=== PATIENT | female | born 1975 | race Caucasian/White ===

== ENCOUNTER 2018-01-23 14:19 | Emergency (ER) | payer OTHER ==
--- NOTE | 2018-01-23 14:22 | PDOC ---
History of Present Illness <Asher Andrade - Last Filed: 01/23/18 19:01> - General History Source: Patient Exam Limitations: No Limitations - History of Present Illness Initial Comments: 01/23/18 14:38 The patient is a 42 year old female with a significant PMH of asthma and depression who presents to the emergency department with a three day history of constipation and abdominal pain with multiple episodes of vomit since this morning. The patient states she has been constipated for the past three days and used a fleet enema yesterday but has still not had a bowel movement. The patient describes the abdominal pain as sharp, intermittent, and localized in the right lower quadrant with radiation to the lower back. The patient also endorses multiple episodes of nonbloody, nonbilious vomit since this morning. The patient denies any alleviating or exacerbating factors for her symptoms. The patient denies taking any medications for her symptoms. The patient denies chest pain, shortness of breath, headache and dizziness. Denies fever, chills, and diarrhea. Denies dysuria, frequency, urgency and hematuria. Allergies: lamotrigine. Past surgical history: Gastric sleeve two years ago and tubal ligation. Social history: No reported alcohol,drug, or cigarette use. <Monica Acosta - Last Filed: 01/23/18 19:05> - General Chief Complaint: Pain Stated Complaint: ABD PAIN Time Seen by Provider: 01/23/18 14:22 Past History - Past Medical History Asthma: Yes Psychiatric Problems: Yes (DEPRESSION) - Surgical History GI Surgery: Yes (SLEEVE) - Suicide/Smoking/Psychosocial Hx Smoking Status: No Smoking History: Never smoked Number of Cigarettes Smoked Daily: 0 <Asher Andrade - Last Filed: 01/23/18 19:01> <Monica Acosta - Last Filed: 01/23/18 19:05> - Past Medical History Allergies/Adverse Reactions: Allergies Allergy/AdvReac Type Severity Reaction Status Date / Time lamotrigine [From Lamictal] Allergy Unknown Verified 01/23/18 14:22 Home Medications: Ambulatory Orders Quetiapine Fumarate [Seroquel] 400 mg PO HS 08/29/15 Review of Systems - Review of Systems Able to Perform ROS?: Yes Comments:: 01/23/18 14:29 CONSTITUTIONAL: Absent: fever, no chills, no fatigue EYES: Absent: visual changes ENT: Absent: ear pain, no sore throat CARDIOVASCULAR: Absent: chest pain, no palpitations RESPIRATORY: Absent: cough, no SOB GI: Absent: No diarrhea. Present: Abdominal pain. Vomiting. Constipation. GENITOURINARY: Absent: dysuria, no frequency, no hematuria MUSKULOSKELETAL: Absent: back pain, no arthralgia, no myalgia SKIN: Absent: rash NEURO: Absent: headache <Monica Acosta - Last Filed: 01/23/18 19:05> *Physical Exam - Physical Exam Comments: 01/23/18 14:28 GENERAL: (+) Appears uncomfortable. Well-nourished. HEENT: Normocephalic, atraumatic. PERRL, EOM intact. CARDIOVASCULAR: Normal S1, S2. Regular rate and rhythm. PULMONARY: Clear to auscultation bilaterally. ABDOMEN: (+) Right lower quadrant tenderness. Soft, non-distended. Normoactive bowel sounds. No organomegaly. No masses. No guarding or rebound. EXTREMITIES: Normal ROM in all four extremities. No gross deformities. SKIN: Warm, dry. No rash NEUROLOGICAL: No focal neurological deficits. <Monica Acosta - Last Filed: 01/23/18 19:05> ED Treatment Course - LABORATORY CBC & Chemistry Diagram: 01/23/18 14:58 01/23/18 14:58 <Asher Andrade - Last Filed: 01/23/18 19:01> - LABORATORY CBC & Chemistry Diagram: 01/23/18 14:58 01/23/18 14:58 <Monica Acosta - Last Filed: 01/23/18 19:05> Progress Note - Progress Note Progress Note: Pt is feeling better after IVF and pain medications. Labs show H/H to be low which is unchanged from 05/18. No bleeding, MCV low, most likely chronic anemia from iron deficiency CT abdomen/pelvis: ruptured hemorrhagic right ovarian cyst, no appendicitis WBC normal, no fever. WIll discharge home with follow up with marketing strategist Pt refuses marketing strategist exam at this time, risks and benefits discussed with pt Pt is in agreement with plan. <Asher Andrade - Last Filed: 01/23/18 19:01> Medical Decision Making - Medical Decision Making 01/23/18 19:05 IMAGING: Abdomen and pelvis CT FINDINGS: 1.There is a small amount of free fluid in the right adnexa and cul- de0sac. The Hounsfield units are suggestive of blood products. This may represent sequela of a ruptured right ovarian hemorrhagic cyst. In the proper clinical setting a tubo-ovarian infectious process would need to be considered. There is an approximately 2.2 cm area of low attenuation in the right ovary with marginal enhancement. Possible corpus with cyst. There is evidence of previous bilateral tubal ligation with retained hardware. 2. Splenomegaly 3. No other evidence of an acute intra-abdominal process. The appendix is normal in appearance. There is no evidence of pneumoperitoneum 4. There is mild to moderate amount of stool throughout the colon. 5. Previous gastric surgery <Monica Acosta - Last Filed: 01/23/18 19:05> *DC/Admit/Observation/Transfer - Discharge Dispostion Decision to Admit order: No <Asher Andrade - Last Filed: 01/23/18 19:01> <Monica Acosta - Last Filed: 01/23/18 19:05> Diagnosis at time of Disposition: Ruptured ovarian cyst Abdominal pain Qualifiers: Abdominal location: right lower quadrant Qualified Code(s): R10.31 - Right lower quadrant pain Constipation Qualifiers: Constipation type: unspecified constipation type Qualified Code(s): K59.00 - Constipation, unspecified - Discharge Dispostion Disposition: HOME - Patient Instructions Printed Discharge Instructions: DI for Ovarian Cyst, DI for Abdominal Pain- Adult, DI for Constipation Additional Instructions: Fluids, rest, Motrin Stool softeners Follow up with your lpn private duty If worsen return to ER
[2018-01-23] MEDS ORDERED: morphine CARPU-JECT 4 MG/1 ML DISP.SYRIN IVPUSH ONE (14:27)
[2018-01-23] MEDS ORDERED: SODIUM CHLORIDE 1,000 ML IV STA (14:27)
[2018-01-23] MEDS ORDERED: ONDANSETRON 4 MG/2 ML VIAL IVPUSH ONE (14:27)
[2018-01-23 14:29] VITALS: BP 129/84; PULSE 86; TEMP 98; BMI 38.7
[2018-01-23] MEDS ORDERED: ONDANSETRON 4 MG/2 ML VIAL ONE (14:37)
[2018-01-23] MEDS ORDERED: morphine SULFATE 4 MG/ML VIAL ONE (14:37)
[2018-01-23 15:11] LABS: URINE APPEARANCE Clear; URINE BILIRUBIN Negative (NEGATIVE); URINE GLUCOSE (UA) Negative (NEGATIVE); URINE KETONE Negative (NEGATIVE); URINE LEUK ESTERASE Negative (NEGATIVE); URINE NITRITE Negative (NEGATIVE); URINE PROTEIN Negative (NEGATIVE); URINE UROBILINOGEN 0.2 (0.2-1.0)
[2018-01-23 15:12] LABS: URINE COLOR YELLOW
[2018-01-23 15:20] LABS: HCG,QUALITATIVE URINE Negative
[2018-01-23 15:28] LABS: HEMOGLOBIN 8.3 GM/dl (10.7-15.3); MEAN PLT VOLUME 7.9 fl (7.5-11.1)
[2018-01-23 15:30] LABS: ALBUMIN 3.7 g/dl (3.5-5.0); ALK PHOS 53 U/L (32-92); ANION GAP 6 (8-16); BILIRUBIN,TOTAL 0.5 mg/dl (0.2-1.0); BLOOD UREA NITROGEN 11 mg/dl (7-18); CALCIUM 8.8 mg/dl (8.4-10.2); CHLORIDE 105 mmol/L (98-107); CO2 26 mmol/L (22-28); CREATININE 0.5 mg/dl (0.6-1.3); GLUCOSE,RANDOM 104 mg/dl (74-106); POTASSIUM 3.8 mmol/L (3.5-5.1); SGOT/AST 19 U/L (10-42); SGPT/ALT 17 U/L (10-40); SODIUM 137 mmol/L (136-145); TOT PROT 6.6 g/dl (6.4-8.3)
[2018-01-23 15:31] LABS: EOS % 4.4 % (0-4.5); LYMPH % 17.2 % (8-40); MCHC 30.6 g/dl (32.0-36.0); MEAN CELL VOLUME 63.8 fl (80-96); MONO % 9.4 % (3.8-10.2); PLATELET COUNT 236 K/MM3 (134-434); RBC 4.23 M/mm3 (3.60-5.2); RDW 17.2 % (11.6-15.6); WHITE BLOOD COUNT 5.4 K/mm3 (4.0-10.8)
[2018-01-23 15:34] LABS: MCH 19.5 pg (25.7-33.7)
[2018-01-23 16:37] LABS: LIPASE 122 U/L (73-393)
== END 2018-01-23 19:13 | disposition home or self-care (01) ==
LOC: FER 14:19
PROC: 3E033NZ Introduction of Analgesics, Hypnotics, Sedatives into Peripheral Vein, Percutaneous Approach (ICD-10-PCS; principal; 2018-01-23)
PROC: 3E033GC Introduction of Other Therapeutic Substance into Peripheral Vein, Percutaneous Approach (ICD-10-PCS; 2018-01-23)
PROC: 3E0337Z Introduction of Electrolytic and Water Balance Substance into Peripheral Vein, Percutaneous Approach (ICD-10-PCS; 2018-01-23)
DX: R10.31 Right lower quadrant pain (principal); K59.00 Constipation, unspecified
CPT/HCPCS: 36415; 74177-TC; 80053; 81003; 83690; 84703; 85025; 99282-25; J7030

== ENCOUNTER 2018-10-24 14:18 | Day surgery (SDC) | payer OTHER ==
[2018-10-24] MEDS ORDERED: FERRIC CARBOXYMALTOSE 750 MG in SODIUM CHLORIDE 250 ML IVPB ONE (15:30)
[2018-10-24 16:36] VITALS: TEMP 97.5
[2018-10-24 17:02] VITALS: BP 134/79; PULSE 76
== END 2018-10-24 17:03 | disposition home or self-care (01) ==
LOC: JONCNONCHE 14:18
PROVIDERS: ATTEND Internal Medicine Hematology & Oncology
PROC: 3E033GC Introduction of Other Therapeutic Substance into Peripheral Vein, Percutaneous Approach (ICD-10-PCS; principal; 2018-10-24)
DX: D50.9 Iron deficiency anemia, unspecified (principal)
CPT/HCPCS: 96365; J1439

== ENCOUNTER 2018-10-31 07:07 | Day surgery (SDC) | payer OTHER ==
[2018-10-31] MEDS ORDERED: FERRIC CARBOXYMALTOSE 750 MG in SODIUM CHLORIDE 250 ML IVPB ONE (10:00)
[2018-10-31 17:11] VITALS: TEMP 98.1
[2018-10-31 17:56] VITALS: BP 113/57; PULSE 73
== END 2018-10-31 17:45 | disposition home or self-care (01) ==
LOC: JONCNONCHE 07:07 → J7W 16:28 → JONCNONCHE 17:45
PROVIDERS: ATTEND Internal Medicine Hematology & Oncology
PROC: 3E033GC Introduction of Other Therapeutic Substance into Peripheral Vein, Percutaneous Approach (ICD-10-PCS; principal; 2018-10-31)
DX: D50.9 Iron deficiency anemia, unspecified (principal)
CPT/HCPCS: 96365; J1439

== ENCOUNTER 2020-02-16 07:42 | Day surgery (SDC) | payer OTHER ==
[2020-02-15 10:08] VITALS: BMI 39.3
--- NOTE | 2020-02-16 09:17 | HP ---
Admitting History and Physical - Admission Chief Complaint: symptomatic cholelithiasis History of Present Illness: 44 y.o. female with chronic RUQ pain. US showed cholelithiasis with normal CBD History Source: Patient Limitations to Obtaining History: No Limitations - Past Medical History ...LMP: 02/12/20 - Smoking History Smoking history: Never smoked Have you smoked in the past 12 months: No Aproximately how many cigarettes per day: 0 - Alcohol/Substance Use Hx Alcohol Use: No Home Medications - Allergies Allergies/Adverse Reactions: Allergies Allergy/AdvReac Type Severity Reaction Status Date / Time lamotrigine [From Lamictal] Allergy Unknown Verified 02/15/20 09:59 - Home Medications Home Medications: Ambulatory Orders Quetiapine Fumarate [Seroquel] 400 mg PO HS 08/29/15 Review of Systems - Review of Systems Constitutional: reports: No Symptoms Eyes: reports: No Symptoms HENT: reports: No Symptoms Neck: reports: No Symptoms Cardiovascular: reports: No Symptoms Respiratory: reports: No Symptoms Gastrointestinal: reports: Abdominal Pain (intermittent at RUQ) Genitourinary: reports: No Symptoms Physical Examination Vital Signs: Vital Signs Temperature 98.0 F 02/16/20 08:31 Pulse Rate 79 02/16/20 08:31 Respiratory Rate 20 02/16/20 08:31 Blood Pressure 116/69 02/16/20 08:31 O2 Sat by Pulse Oximetry (%) 96 02/16/20 08:31 Constitutional: Yes: Well Nourished Eyes: Yes: WNL HENT: Yes: Normocephalic Neck: Yes: Supple Cardiovascular: Yes: Regular Rate and Rhythm Respiratory: Yes: CTA Bilaterally Gastrointestinal: Yes: Normal Bowel Sounds, Soft, Abdomen, Obese Imaging - Results Ultrasound: Report Reviewed, Image Reviewed Problem List - Problems (1) Chronic cholecystitis with calculus Assessment/Plan: laparoscopic cholecystectomy Code(s): K80.10 - CALCULUS OF GALLBLADDER W CHRONIC CHOLECYST W/O OBSTRUCTION
[2020-02-16] MEDS ORDERED: PROPOFOL 20 ML ONE (09:23)
[2020-02-16] MEDS ORDERED: MIDAZOLAM HCL 2 MG/2 ML SINGLE DOSE VIAL ONE (09:23)
[2020-02-16] MEDS ORDERED: LIDOCAINE HCL/PF 2% SDV 5ML VIAL ONE (09:25)
[2020-02-16] MEDS ORDERED: ceFAZolin SODIUM 1 GM VIAL ONE (09:25)
[2020-02-16] MEDS ORDERED: SODIUM CHLORIDE 0.9% P/F 10 ML VIAL IJ ONE (09:25)
[2020-02-16] MEDS ORDERED: DEXAMETHASONE SOD PHOSPHATE 4 MG/1 ML VIAL ONE (09:25)
[2020-02-16] MEDS ORDERED: ceFAZolin 2 GRAM PREMIX BAG IVPB ONE (10:03)
[2020-02-16] MEDS ORDERED: BUPIVACAINE HCL/PF 0.5% (5 MG/ML) 30 ML VIAL IJ ONE ×2 (10:20)
[2020-02-16] MEDS ORDERED: NEOSTIGMINE METHYLSULFATE 0.5 MG/ML - 10 ML MDV ONE (11:19)
[2020-02-16] MEDS ORDERED: GLYCOPYRROLATE 0.2 MG/1 ML VIAL ONE (11:19)
--- NOTE | 2020-02-16 11:48 | OP ---
Operative Note - Note: Operative Date: 02/16/20 Pre-Operative Diagnosis: cholelithiasis Operation: laparoscopic cholecystectomy Post-Operative Diagnosis: Same as Pre-op Surgeon: Lobito Rojas Medical Insurance Verifier: Audrey Pandya Anesthesiologist/MEDIA STRATEGIST: Dane Mcneill Anesthesia: General, Local Specimens Removed: gallbladder Estimated Blood Loss (mls): 15 Fluid Volume Replaced (mls): 900 Operative Report Dictated: Yes
[2020-02-16] MEDS ORDERED: ONDANSETRON 4 MG/2 ML VIAL IVPUSH PRN (11:57)
[2020-02-16] MEDS ORDERED: LACTATED RINGERS SOLUTION 1,000 ML IV SCH (12:00)
[2020-02-16] MEDS ORDERED: ACETAMINOPHEN 1000 MG/100 ML VIAL (NON FORMULARY) IVPB ONE ×2 (13:30→14:08)
[2020-02-16] MEDS ORDERED: ACETAMINOPHEN INJECTION 100 ML IVPB ONE (13:32)
[2020-02-16] MEDS ORDERED: oxyCODONE HCL 5 MG TABLET PO ONE ×2 (14:09→15:30)
[2020-02-16] MEDS ORDERED: oxyCODONE HCL 5 MG TABLET ONE (15:27)
[2020-02-16 16:52] VITALS: BP 123/61; TEMP 97.8
[2020-02-16 17:15] VITALS: PULSE 87
--- NOTE | 2020-02-18 01:49 | OP ---
DATE OF OPERATION: 02/16/2020 PROCEDURE: Laparoscopic cholecystectomy. PREOPERATIVE DIAGNOSIS: Chronic cholecystitis with cholelithiasis. POSTOPERATIVE DIAGNOSIS: Chronic cholecystitis with cholelithiasis. SURGEON: Lobito Rojas MD LICENSING AND REGISTRATION DIRECTOR: Audrey Pandya PA-C ANESTHESIA: General endotracheal. FINDINGS ON PROCEDURE: This is a 44-year-old female who presents with chronic right upper quadrant pain, radiating to the back, associated with fatty meals. Preoperative ultrasound revealed a gallbladder with multiple stones and a normal-size common duct, so patient was advised elective cholecystectomy. Consent was obtained after discussing the risks, benefits and alternatives of the procedure. DESCRIPTION OF PROCEDURE: The patient was brought to the operating room and placed in supine position. General endotracheal anesthesia was administered. The abdomen was prepped and draped in the usual sterile fashion. Using 0.5% Marcaine, local anesthesia was administered to the proposed incision site. The peritoneal cavity was entered using the Optiview technique via a 5-mm, 0-degree scope inserted in a 5- mm optical port. Pneumoperitoneum was established. The peritoneal cavity was carefully inspected and was noted to be free of inadvertent injury. A small amount of bleeding from the omentum was noted but no active bleeding. The patient was then placed in reverse Trendelenburg, left-side down position. A 12-mm port was inserted at the subxiphoid region under direct vision, and 2 other 5-mm ports were inserted at the right subcostal region at the mid clavicular and anterior axillary lines. The gallbladder fundus was grasped and retracted superiorly, and the infundibulum was grasped and retracted inferior laterally. The visceral peritoneum covering the triangle of Calot was scored using the hook dissector connected to monopolar cautery. The cystic duct and cystic artery were isolated, as well as a window was created between the proximal gallbladder wall and the liver bed behind the cystic artery, to create the critical view of safety. Afterward, the cystic duct and cystic artery were isolated and clipped at 3 areas, followed by transsection, leaving 2 clips at the cystic duct and cystic artery stumps. The gallbladder was resected from its bed in antegrade fashion using the hook dissector connected to monopolar cautery. After this was done, the gallbladder was placed in an Endo bag and extracted via the subxiphoid port, where the gallbladder stones were crushed to accommodate the extraction. Afterward, the gallbladder fossa was inspected and was further cauterized for hemostasis. The Morison pouch was irrigated with sterile normal saline until the return was clear. The pneumoperitoneum was evacuated and the ports were removed. The wounds were closed with subcuticular Biosyn 4 sutures, reinforced with Dermabond. The patient was successfully extubated and transferred to the post anesthesia care unit in satisfactory condition. Estimated blood loss was about 15 mL. Wound class clean, contaminated. The patient received 2 g of Ancef prior to the start of the procedure. Bear [id number] MTDJean Pierre
--- NOTE | 2020-02-19 17:21 | PATH ---
Surgical Pathology Report Patient Name: PEGGY SANDRA [facility]. Rec. #: [id number] /Age/Gender: 1975 (Age: 44) / F Account: [id number] Location: [facility] SUR[facility]ICAL Taken: 02/16/2020 Received: 02/16/2020 Reported: 02/19/2020 Physicians: Lobito Rojas M.D. Specimen(s) Received GALLBLADDER WITH STONES Clinical History Cholecystitis Final Diagnosis GALLBLADDER WITH STONES, LAPAROSCOPIC CHOLECYSTECTOMY: CHRONIC CHOLECYSTITIS WITH CHOLELITHIASIS. Electronically Signed Peggy Gamboa M.D. Gross Description Received in formalin, labeled "gallbladder with stones," is a 9.0 x 2.5 x 1.5 cm. gallbladder with a 0.2 cm. in length portion of cystic duct attached. The outer surface is isbell-pink with multifocal defects and varies from smooth to shaggy. There is no bile and no choleliths present within the gallbladder. Separately received within the same container is a binding yellow, sludgelike bile as well as a blending yellow, irregular to fragmented choleliths ranging from 0.1-2.0 cm in greatest dimension. The mucosa is isbell red and focally hyperemic. The wall of the gallbladder ranges from 0.1-0.3 cm. in thickness. [employer] sections are submitted in one cassette. /02/16/2020 [facility]02/16/2020
== END 2020-02-16 17:25 | disposition home or self-care (01) ==
LOC: JASU-SURG 07:42
PROVIDERS: ATTEND Surgery
PROC: 0FT44ZZ Resection of Gallbladder, Percutaneous Endoscopic Approach (ICD-10-PCS; principal; 2020-02-16 09:30)
DX: K80.10 Calculus of gallbladder with chronic cholecystitis without obstruction (principal)
CPT/HCPCS: 84703; 88304-TC; 94760; J0131

== ENCOUNTER 2021-08-08 10:09 | Emergency (ER) | payer OTHER ==
[2021-08-08 10:33] VITALS: BP 112/72; PULSE 82; TEMP 97.9
== END 2021-08-08 11:18 | disposition home or self-care (01) ==
LOC: JERFT 10:09
DX: Z77.21 Contact with and (suspected) exposure to potentially hazardous body fluids (principal)
CPT/HCPCS: 99282-25

== ENCOUNTER 2023-02-16 07:34 | Emergency (ER) | payer OTHER ==
[2023-02-16 07:40] VITALS: RESP 18; TEMP 98.6; BMI 32.3
[2023-02-16] MEDS ORDERED: ACETAMINOPHEN 1000 MG/100 ML BAG IVPB ONE (08:01)
[2023-02-16] MEDS ORDERED: SODIUM CHLORIDE 0.9% 500 ML INFUS.BAG IV ONE (08:02)
[2023-02-16] MEDS ORDERED: ONDANSETRON 4 MG/2 ML VIAL IVPUSH ONE (08:03)
[2023-02-16] MEDS ORDERED: ONDANSETRON 4 MG/2 ML VIAL ONE (08:25)
[2023-02-16] MEDS ORDERED: ACETAMINOPHEN INJECTION 100 ML IVPB ONE (08:25)
[2023-02-16 08:26] LABS: EOS % 4.3 % (0-4.5); HEMATOCRIT 37.1 % (32.4-45.2); LYMPH % 35.4 % (8-40); MCH 25.2 pg (25.7-33.7); MCHC 32.3 g/dl (32.0-36.0); MEAN PLT VOLUME 8.3 fl (7.5-11.1); NEUT % 52.3 % (42.8-82.8); PLATELET COUNT 254 10^3/uL (134-434); RBC 4.76 M/mm3 (3.60-5.2); RDW 14.8 % (11.6-15.6); WHITE BLOOD COUNT 6.1 K/mm3 (4.0-10.0)
[2023-02-16 08:57] LABS: POTASSIUM 4.5 mmol/L (3.5-5.1)
[2023-02-16 08:59] LABS: ALBUMIN 3.8 g/dl (3.4-5.0); BLOOD UREA NITROGEN 11.3 mg/dL (7-18); CALCIUM 9.4 mg/dL (8.5-10.1)
[2023-02-16 09:03] LABS: CREATININE 0.8 mg/dL (0.55-1.3)
[2023-02-16 09:05] LABS: BILIRUBIN,TOTAL 0.4 mg/dL (0.2-1); TOT PROT 7.4 g/dl (6.4-8.2)
[2023-02-16 11:56] LABS: EPI CELLS 4 /uL (0-25.1); HYALINE CASTS 0 /uL (0-3.1); URINE APPEARANCE CLEAR; URINE BACTERIA 11 /uL (0-1359); URINE BILIRUBIN NEGATIVE (NEGATIVE); URINE COLOR YELLOW; URINE GLUCOSE (UA) NEGATIVE (NEGATIVE); URINE KETONE NEGATIVE (NEGATIVE); URINE LEUK ESTERASE NEGATIVE (NEGATIVE); URINE NITRITE NEGATIVE (NEGATIVE); URINE PROTEIN NEGATIVE (NEGATIVE); URINE RBC 79 /uL (0-23.9); URINE UROBILINOGEN 0.2 mg/dL (0.2-1.0); URINE WBC 2 /uL (0-25.8)
[2023-02-16 12:47] VITALS: BP 104/54; PULSE 64
== END 2023-02-16 12:51 | disposition home or self-care (01) ==
LOC: JER 07:34
PROC: 3E033NZ Introduction of Analgesics, Hypnotics, Sedatives into Peripheral Vein, Percutaneous Approach (ICD-10-PCS; principal; 2023-02-16)
PROC: 3E033GC Introduction of Other Therapeutic Substance into Peripheral Vein, Percutaneous Approach (ICD-10-PCS; 2023-02-16)
DX: R10.32 Left lower quadrant pain (principal); R11.2 Nausea with vomiting, unspecified
CPT/HCPCS: 36415; 74177-TC; 76830-TC; 80053; 81003; 83690; 84703; 85025; 86850; 86900; 86901; 87086; 99285-25; Q9967

== ENCOUNTER 2023-07-05 04:19 | Day surgery (SDC) | payer OTHER ==
[2023-06-30 16:18] VITALS: BMI 32.9
[~2023-07-05 04:19] MED LIST: ceFAZolin SODIUM 1 GM VIAL IVPB ONE
[2023-07-05] MEDS ORDERED: oxyCODONE HCL 5 MG TABLET PO PRN (09:07)
[2023-07-05] MEDS ORDERED: ONDANSETRON 4 MG/2 ML VIAL IVPUSH PRN (09:07)
[2023-07-05] MEDS ORDERED: PROMETHAZINE HCL 25 MG/1 ML VIAL IVPB PRN (09:07)
[2023-07-05] MEDS ORDERED: LACTATED RINGERS SOLUTION 1,000 ML IV SCH (09:15)
[2023-07-05] MEDS ORDERED: PROPOFOL 40 ML ONE (10:54)
[2023-07-05] MEDS ORDERED: MIDAZOLAM HCL 2 MG/2 ML SINGLE DOSE VIAL ONE (10:54)
[2023-07-05] MEDS ORDERED: FENTANYL CITRATE/PF 50 MCG/ML VIAL ONE ×2 (10:54→12:32)
[2023-07-05] MEDS ORDERED: ceFAZolin SODIUM 1 GM VIAL IVPB ONE (11:25)
[2023-07-05 16:52] VITALS: RESP 20; TEMP 97.3
[2023-07-05 16:55] VITALS: BP 110/62; PULSE 67
== END 2023-07-05 15:25 | disposition home or self-care (01) ==
LOC: JASU-SURG 04:19
PROVIDERS: ATTEND Obstetrics & Gynecology
PROC: 0UB98ZZ Excision of Uterus, Via Natural or Artificial Opening Endoscopic (ICD-10-PCS; principal; 2023-07-05 10:00)
DX: N84.0 Polyp of corpus uteri (principal)
CPT/HCPCS: 81025; 88305-TC; 94760